=== PATIENT | female | born 1975 | race Caucasian/White ===

== ENCOUNTER 2020-12-17 09:49 | Outpatient (CLI) | payer OTHER ==
[2020-12-17 16:44] LABS: SARS-CoV-2 PCR by NAA Not Detected (NotDetected)
== END 2020-12-17 09:50 | disposition home or self-care (01) ==
LOC: LABBT 09:49
PROVIDERS: ATTEND Internal Medicine Gastroenterology
DX: Z01.812 Encounter for preprocedural laboratory examination (principal); K62.5 Hemorrhage of anus and rectum; R10.9 Unspecified abdominal pain; Z20.822 Contact with and (suspected) exposure to COVID-19
CPT/HCPCS: 87635; U0003; U0005

== ENCOUNTER 2020-12-22 07:48 | Day surgery (SDC) | payer OTHER ==
[2020-12-21 14:07] VITALS: BMI 67.6
[2020-12-22] MEDS ORDERED: Lidocaine 1% PF 5 ML VIAL ONE (09:40)
[2020-12-22] MEDS ORDERED: PROPOFOL 200 MG/20 ML VIAL ONE (09:40)
== END 2020-12-22 11:22 | disposition home or self-care (01) ==
LOC: SDC 07:48
PROVIDERS: ATTEND Internal Medicine Gastroenterology
PROC: 0DJD8ZZ Inspection of Lower Intestinal Tract, Via Natural or Artificial Opening Endoscopic (ICD-10-PCS; principal; 2020-12-22)
DX: K64.9 Unspecified hemorrhoids (principal); K62.89 Other specified diseases of anus and rectum; K59.00 Constipation, unspecified; G47.30 Sleep apnea, unspecified; F17.210 Nicotine dependence, cigarettes, uncomplicated; C53.9 Malignant neoplasm of cervix uteri, unspecified; E66.9 Obesity, unspecified; Z68.43 Body mass index [BMI] 50.0-59.9, adult; Z88.5 Allergy status to narcotic agent; Z88.8 Allergy status to other drugs, medicaments and biological substances; Z91.041 Radiographic dye allergy status; Z79.899 Other long term (current) drug therapy
CPT/HCPCS: J2704

== ENCOUNTER 2021-01-12 08:14 | Outpatient (CLI) | payer OTHER | END 2021-01-12 08:15 | disposition home or self-care (01) | LOC: PET 08:14 | PROVIDERS: ATTEND Obstetrics & Gynecology Gynecologic Oncology | DX: C53.9 Malignant neoplasm of cervix uteri, unspecified (principal); E04.1 Nontoxic single thyroid nodule | CPT/HCPCS: 78815; A9552 ==

== ENCOUNTER 2021-02-04 08:41 | Outpatient (CLI) | payer OTHER | END 2021-02-04 08:42 | disposition home or self-care (01) | LOC: ULT 08:41 | PROVIDERS: ATTEND Obstetrics & Gynecology Gynecologic Oncology | DX: C53.0 Malignant neoplasm of endocervix (principal) | CPT/HCPCS: 76536 ==

== ENCOUNTER 2021-07-20 14:55 | Outpatient (CLI) | payer OTHER | END 2021-07-20 14:56 | disposition home or self-care (01) | LOC: BICULT 14:55 | PROVIDERS: ATTEND Nurse Practitioner Family | DX: C53.9 Malignant neoplasm of cervix uteri, unspecified (principal); E04.2 Nontoxic multinodular goiter | CPT/HCPCS: 76536 ==